=== PATIENT | female | born 2005 | race African-American/Black ===

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

== ENCOUNTER 2024-03-09 07:20 | Emergency (ER) | payer OTHER, SELFPAY ==
[2024-03-09 07:20] VITALS: BP 122/77; PULSE 96; RESP 16; TEMP 37.3; O2SAT 98
--- NOTE | 2024-03-09 07:35 | ED.NECK ---
HPI - Neck Pain/Injury General Chief Complaint: Neck Pain/Injury Stated Complaint: neck pain & nausea Time Seen by Provider: 03/09/24 07:34 Source: patient Mode of arrival: EMS Limitations: no limitations History of Present Illness HPI Narrative: 18-year-old female presents from home via EMS with complaint of right-sided neck pain a a the past 1 day. She states started as a headache that seems to have gone into the right side of her neck. She has a history of headaches but notes that it was unusual to have the associated neck pain. She denies any injury or trauma. She denies any repetitive movements she does work at [employer]. No paresthesias. [id number]. She lives with 3 roommates but is unsure if any of them are sick. She started having nausea approximately 6:00 a.m.. She denies any vomiting Or abdominal pain. Not on anticoagulation. Denies dysuria or fevers. Denies any altered mental status or slurred speech. She did take her on 500 mg tablet of acetaminophen yesterday and states it worked for about 30 minutes. She notes some very slight eye pain but states it feels more supraorbital. She is noted to be suffering a states that she had worsening congestion yesterday. Mild photophobia at home but denies any photophobia currently. No phonophobia. No known carbon monoxide/space heater use. LBM normal. Related Data Allergies Allergy/AdvReac Type Severity Reaction Status Date / Time No Known Allergies Allergy Verified 03/09/24 07:35 PMFSH Past Medical History Medical History History of headache Ovarian cyst Right hand dominant Social History Social History Living arrangements: with roommate(s) Additional living arrangements comments: 3 roommates Occupation/Education: occupation Additional occupation/education comments: [employer] Exam Narrative: GENERAL: Well-appearing, well-nourished, and in no acute distress. HEAD: Normocephalic, atraumatic. EYES: Non injected, non icteric. PERRL. EOMI w/o nystagmus. ENT: No epistaxis but occasionally sniffling with nasal congestion. NECK: Supple. Full ROM w/o meningismus. CHEST: Speaking in full sentences. No respiratory distress. HEART: Regular rate and rhythm. ABDOMEN: Soft, nondistended. EXTREMITIES: Normal range of motion. No edema. SKIN: Warm, dry, no rash. NEURO: No focal deficits. Alert and oriented x3. Sensation intact to gross touch throughout. Speaks clearly without Aphasia or dysarthria. PSYCH: Normal mood and affect. Course Vital Signs Vital signs: Vital Signs Temperature 99.2 F 03/09/24 07:20 Pulse Rate 96 03/09/24 07:20 Respiratory Rate 16 03/09/24 07:20 Blood Pressure 122/77 03/09/24 07:20 Pulse Oximetry 98 03/09/24 07:20 Oxygen Delivery Room Air 03/09/24 07:20 Temperature 99.2 F 03/09/24 07:20 Pulse Rate 72 03/09/24 09:25 Respiratory Rate 16 03/09/24 09:25 Blood Pressure 125/72 03/09/24 09:25 Pulse Oximetry 99 03/09/24 09:25 Oxygen Delivery Room Air 03/09/24 07:20 MDM - Neck Pain/Injury MDM Narrative Medical decision making narrative: After obtaining the patient's history and performing a physical exam, the headache and neck pain is most likely due to benign etiology. The neurological examination is non-focal, there are no high-risk features on history. In the emergency department they are afebrile with vital signs within normal limits. The patient is non-toxic appearing. The Ddx for the patient's headache and neck pain is tension headache, migraine, or other headache of non-emergent etiology. Considered for nausea as well as acute viral syndrome. Unlikely SAH: headache is non-thunderclap. Headache is gradual, and similar to headaches in the past. Unlikely subdural/epidural hematoma: no history of trauma, no anticoagulation Unlikely meningitis:
[2024-03-09] MEDS: ACETAMINOPHEN 325 MG TABLET 650 MG PO (07:50)
[2024-03-09] MEDS: KETOROLAC 30 MG/ML VIAL (*BKC) 15 MG IM (07:51)
[2024-03-09] MEDS: ONDANSETRON HCL ODT 4 MG TABLET PO (07:51)
[2024-03-09 08:05] LABS: Appearance Urine Clear (Clear); Bacteria Urine Rare /hpf; Bilirubin Urine Negative (Negative); Blood Urine 2+ (Negative); Color Urine Yellow (Yellow); Glucose Urine UA Negative (Negative); Ketones Urine Negative (Negative); Leukocyte Esterase Ur Trace LEU/UL (Negative); Nitrate Urine Negative (Negative); Non Pathogenic Casts 0-2; Protein Urine Negative (Negative); Specific Grav Ur 1.013 (1.001-1.035); Squamous Epithelial Cell Urine Occasional /hpf (Few); Urobilinogen Urine 0.2 mg/dL (<2.0)
[2024-03-09 08:18] LABS: Add Urine Microscopic? YES
[2024-03-09 08:30] LABS: Influenza A QL RT-PCR Negative (Negative); Influenza B QL RT-PCR Negative (Negative); RSV RNA, RT-PCR Negative (Negative); SARS-CoV-2 RNA PCR Negative (Negative)
[2024-03-09] MEDS: SULFAMETHOXAZOLE/TRIMETHOPRIM 800/160 MG DS TABLET 1 TAB PO (09:17)
[2024-03-09] MEDS: predniSONE 10 MG TABLET PO (09:17)
[2024-03-09 09:25] VITALS: BP 125/72; PULSE 72; RESP 16; O2SAT 99
== END 2024-03-09 09:25 | disposition home or self-care (01) ==
PROVIDERS: Emergency Provider Student in an Organized Health Care Education/Training Program
DX: M54.2 Cervicalgia (principal); R51.9 Headache, unspecified; N39.0 Urinary tract infection, site not specified; R11.0 Nausea
CPT/HCPCS: 81001; 81025; 87086; 87637; 96372; 99283; A9270; J1885; J7512

== ENCOUNTER 2024-04-19 05:06 | Emergency (ER) | payer OTHER, SELFPAY ==
[2024-04-19 05:07] VITALS: BP 115/80; PULSE 89; RESP 17; TEMP 36.9; O2SAT 100
[2024-04-19 05:11] VITALS: BP 115/80; PULSE 89; RESP 18; TEMP 36.9; O2SAT 100
[2024-04-19 05:21] LABS: Basophils Percent Auto 0.3 % (0.2-1.2); Eosinophils Absolute Auto 0.2 K/mm3 (0-0.3); Eosinophils Percent Auto 2.7 % (0-4.4); Hematocrit 37.4 % (37.0-47.0); Hemoglobin 12.5 g/dL (12.0-15.0); Immature Granulocyte Absolute 0.02 K/mm3 (0.00-0.031); Immature Granulocyte Percent A 0.2 % (0-0.5); Lymphocytes Absolute Auto 3.11 K/mm3 (0.9-3.2); Lymphocytes Percent Auto 34.7 % (18.3-44.2); Mean Corpuscular HGB Conc 33.4 g/dl (32-36); Mean Corpuscular Hemoglobin 31.6 pg (26-34); Mean Corpuscular Volume 94.4 fl (80-100); Mean Platelet Volume 9.3 fl (7.4-10.4); Monocytes Absolute Auto 0.8 K/mm3 (0.1-0.6); Monocytes Percent Auto 8.9 % (2.6-8.5); Neutrophils Absolute Auto 4.8 K/mm3 (1.3-6.7); Neutrophils Percent Auto 53.2 % (45.5-73.1); Platelet Count Result 312 k/mm3 (150-375); Red Blood Count 3.96 M/mm3 (4.2-5.4); Red Cell Distribution Width 11.7 % (11.5-14.5)
[2024-04-19] MEDS: ONDANSETRON INJ 4 MG/2 ML VIAL IV PUSH (05:21)
[2024-04-19 05:32] LABS: Alanine Aminotransferase 11 U/L (6-35); Albumin Level 4.4 g/dL (3.7-5.6); Alkaline Phosphatase 45 U/L (45-116); Anion Gap 7 mmol/L (4-12); Aspartate Amino Transferase 24 U/L (14-36); Bilirubin,Total 0.3 mg/dL (0.2-1.3); Blood Urea Nitrogen 11 mg/dL (8-21); Calcium 9.2 mg/dL (8.9-10.7); Carbon Dioxide 26 mmol/L (22-30); Chloride 107 mmol/L (98-107); Estimated CRCL calculation 78 ml/min; Estimated Glomerular Filt Rate > 60; Glucose 94 mg/dL (65-110); Lipase 118 U/L (23-300); Potassium 4.1 mmol/L (3.4-5.0); Sodium 140 mmol/L (134-143)
[2024-04-19 05:36] LABS: Appearance Urine Cloudy (Clear); Bacteria Urine 1+ /hpf; Bilirubin Urine Negative (Negative); Blood Urine 3+ (Negative); Color Urine Yellow (Yellow); Glucose Urine UA Negative (Negative); Ketones Urine Negative (Negative); Leukocyte Esterase Ur Trace LEU/UL (Negative); Nitrate Urine Negative (Negative); Non Pathogenic Casts 0-2; Protein Urine Trace mg/dL (Negative); RBC Urine 21-50 /hpf (0-2); Specific Grav Ur 1.026 (1.001-1.035); Squamous Epithelial Cell Urine Moderate /hpf (Few)
[2024-04-19 05:37] LABS: Add Urine Microscopic? YES
[2024-04-19 05:38] VITALS: BP 110/66; BP 115/76; BP 119/72; PULSE 83; PULSE 91; PULSE 99
[2024-04-19 05:57] VITALS: BP 125/71; PULSE 88; RESP 16; O2SAT 100
--- NOTE | 2024-04-19 06:02 | ED.NAVMDI ---
HPI - Nausea/Vomiting/Diarrhea General Chief complaint: Nausea/Vomiting/Diarrhea Stated complaint: N/V Time Seen by Provider: 04/19/24 05:14 History of Present Illness HPI Narrative: Patient presenting with nausea vomiting this started several hours ago, having trouble keeping things down. No dysuria, she does have spotting for the last month since she has been on the Depo shot. No constipation or diarrhea Related Data Allergies Allergy/AdvReac Type Severity Reaction Status Date / Time No Known Allergies Allergy Verified 04/19/24 05:12 Review of Systems Review of Systems: All systems reviewed & are unremarkable except as noted in HPI and below PMFSH Past Medical History Medical History History of headache Ovarian cyst Right hand dominant Social History Social History Living arrangements: with roommate(s) Additional living arrangements comments: 3 roommates Occupation/Education: occupation Additional occupation/education comments: [employer] Exam Narrative: EXAMINATION OF ORGAN SYSTEMS/BODY AREAS: Constitutional: Vital signs per nursing GENERAL:[No acute distress, non-toxic appearing.] HEAD: Normal with no signs of head trauma. EYES: EOMI, conjunctiva normal ENT: Hearing grossly intact LUNGS: Nonlabored breathing. HEART: [Regular rate and rhythm] ABD: [Soft], nontender to palpation EXT: Normal range of motion SKIN: [No rashes or lesions.] NEURO: [Alert and oriented x 3. No gross focal sensory or strength deficits.] PSYCH: Normal affect Course Vital Signs Vital signs: Vital Signs Temperature 98.5 F 04/19/24 05:07 Pulse Rate 89 04/19/24 05:07 Respiratory Rate 17 04/19/24 05:07 Blood Pressure 115/80 04/19/24 05:07 Pulse Oximetry 100 04/19/24 05:07 Oxygen Delivery Room Air 04/19/24 05:07 Temperature 98.5 F 04/19/24 05:11 Pulse Rate 88 04/19/24 05:57 Respiratory Rate 16 04/19/24 05:57 Blood Pressure 125/71 04/19/24 05:57 Pulse Oximetry 100 04/19/24 05:57 Oxygen Delivery Room Air 04/19/24 05:07 MDM - Nausea/Vomiting/Diarrhea MDM Narrative Medical decision making narrative: patient presents with nausea vomiting for the last few hours, no abdominal pain or tenderness, she is very well-appearing here. Labs within acceptable limits, her urine does have some blood in it is contaminated and she has no dysuria symptoms or have low concern for UTI. She is given Zofran and on re-evaluation is feeling much better, stable for discharge, return precautions provided Lab Data 04/19/24 05:14 04/19/24 05:14 Labs: Lab Results 04/19/24 04/19/24 Range/Units 05:14 05:22 WBC 9.0 (4.5-10.0) K/mm3 RBC 3.96 L (4.2-5.4) M/mm3 Hgb 12.5 (12.0-15.0) g/dL Hct 37.4 (37.0-47.0) % MCV 94.4 (80-100) fl MCH 31.6 (26-34) pg MCHC 33.4 (32-36) g/dl RDW 11.7 (11.5-14.5) % Plt Count 312 (150-375) k/mm3 MPV 9.3 (7.4-10.4) fl Immature Gran % (Auto) 0.2 (0-0.5) % Neut % (Auto) 53.2 (45.5-73.1) % Lymph % (Auto) 34.7 (18.3-44.2) % [place] % (Auto) 8.9 H (2.6-8.5) % Eos % (Auto) 2.7 (0-4.4) % Baso % (Auto) 0.3 (0.2-1.2) % Lymph # (Auto) 3.11 (0.9-3.2) K/mm3 [place] # (Auto) 0.8 H (0.1-0.6) K/mm3 Eos # (Auto) 0.2 (0-0.3) K/mm3 Baso # (Auto) 0.0 (0.0-0.1) K/mm3 Abs Immat Gran (auto) 0.02 (0.00-0.031) K/mm3 Absolute Neuts (auto) 4.8 (1.3-6.7) K/mm3 Absolute Nucleated RBC 0.000 (0.0-0.012) K/mm3 Nucleated RBC % 0.0 (0.0-0.2) % Sodium 140 (134-143) mmol/L Potassium 4.1 (3.4-5.0) mmol/L Chloride 107 (98-107) mmol/L Carbon Dioxide 26 (22-30) mmol/L Anion Gap 7 (4-12) mmol/L BUN 11 (8-21) mg/dL Creatinine 0.80 (0.7-1.0) mg/dL Estim Creat Clear Calc 78 ml/min Estimated GFR > 60 (59 - ) Glucose 94 (65-110)
== END 2024-04-19 05:59 | disposition home or self-care (01) ==
PROVIDERS: Emergency Provider Emergency Medicine; PCP Emergency Medicine
DX: R11.2 Nausea with vomiting, unspecified (principal)
CPT/HCPCS: 36415; 80053; 81001; 81025; 83690; 85025; 87086; 96374; 99284; J2405

== ENCOUNTER 2024-09-12 03:50 | Emergency (ER) | payer OTHER, SELFPAY ==
[2024-09-12 04:00] VITALS: BP 138/77; PULSE 101; RESP 17; TEMP 36.2; O2SAT 100
--- NOTE | 2024-09-12 04:47 | ED_ITS ---
HPI - General Adult General Chief complaint: Skin/Abscess/Foreign Body Stated complaint: facial burning Time Seen by Provider: 09/12/24 04:36 History of Present Illness HPI narrative: patient 18-year-old female who presents emergency department chief complaint of eczema to the cheeks and ears patient reports he has been trying multiple different creams including hydrocortisone without relief the patient reports she does not have a primary care provider and reports she has no other medical conditions. Related Data Allergies Allergy/AdvReac Type Severity Reaction Status Date / Time No Known Allergies Allergy Verified 09/12/24 04:05 Review of Systems Review of Systems: A 10 system review of systems was completed on the patient and is negative except for what is stated in the HPI. Nursing and ancillary documentation was reviewed. [facility] Past Medical History Medical History History of headache Ovarian cyst Right hand dominant Social History Social History Living arrangements: with roommate(s) Additional living arrangements comments: 3 roommates Occupation/Education: occupation Additional occupation/education comments: [employer] Exam Narrative: GENERAL: Well-appearing, well-nourished, and in no acute distress. HEAD: Normocephalic, atraumatic. EYES: PERRLA and EOMI. ENT: Nares clear, no rhinorrhea or epistaxis. Mucous membranes moist. NECK: Supple. CHEST: Clear to auscultation. No respiratory distress. HEART: Regular rate and rhythm. No murmur heard. Normal peripheral pulses. ABDOMEN: Soft, nontender, nondistended, normal active bowel sounds. EXTREMITIES: Normal range of motion. No edema. SKIN: Warm, dry, Eczematous rash present face. NEURO: No focal deficits. Alert and oriented x3. PSYCH: Normal mood and affect. Course Vital Signs Vital signs: Vital Signs Temperature 36.2 C L 09/12/24 04:00 Pulse Rate 101 H 09/12/24 04:00 Respiratory Rate 17 09/12/24 04:00 Blood Pressure 138/77 09/12/24 04:00 Pulse Oximetry 100 09/12/24 04:00 Oxygen Delivery Room Air 09/12/24 04:00 Temperature 36.2 C L 09/12/24 04:00 Pulse Rate 101 H 12/03/24 04:00 Respiratory Rate 17 09/12/24 04:00 Blood Pressure 138/77 09/12/24 04:00 Pulse Oximetry 100 09/12/24 04:00 Oxygen Delivery Room Air 09/12/24 04:00 Medical Decision Making MDM Narrative Medical decision making narrative: differential diagnosis includes eczema there is no signs of infection on exam patient was given 10 mg Decadron IM the patient will be referred to a primary care provider and will be started on p.o. prednisone. Vital Signs Vital Signs: Vital Signs Temperature 36.2 C L 09/12/24 04:00 Pulse Rate 101 H 09/12/24 04:00 Respiratory Rate 17 09/12/24 04:00 Blood Pressure 138/77 09/12/24 04:00 Pulse Oximetry 100 09/12/24 04:00 Oxygen Delivery Room Air 09/12/24 04:00 Temperature 36.2 C L 09/12/24 04:00 Pulse Rate 101 H 09/12/24 04:00 Respiratory Rate 17 09/12/24 04:00 Blood Pressure 138/77 09/12/24 04:00 Pulse Oximetry 100 09/12/24 04:00 Oxygen Delivery Room Air 09/12/24 04:00 Discharge Plan Discharge Clinical Impression: Eczema Patient Disposition: Home, Self-Care Condition: Stable Instructions: Antibiotic Form, Eczema (ED) Prescriptions: New prednisone 20 mg tablet 40 mg PO DAILY 5 Days Qty: 10 0RF No Action naproxen 375 mg tablet 375 mg PO BID Qty: 14 0RF ibuprofen 600 mg tablet 600 mg PO TID PRN (Reason: pain) Qty: 20 0RF ondansetron 4 mg tablet,disintegrating 4 mg PO Q8H PRN (Reason: nausea and vomiting) Qty: 7 0RF acetaminophen 500 mg capsule 1,000 mg PO Q6H PRN (Reason: pain) Qty: 20 0RF sulfamethoxazole-trimethoprim [Bactrim DS] 800-160 mg tablet 1 tablet PO Q12H 3 Days Qty: 6 0RF ondansetron 4 mg tablet,disintegrating 4 mg PO Q8H PRN (Reason: nausea and vomiting) Qty: 10 0RF Follow-up/Referrals: Cj Krishna MD [Primary Care Provider] - Time of Disposition: 04:49
[2024-09-12] MEDS: dexAMETHasone SOD PHOS INJ 10 MG/ML 1 ML VIAL IM (05:10)
== END 2024-09-12 05:18 | disposition home or self-care (01) ==
LOC: ANHED 04:54
PROVIDERS: Emergency Provider Emergency Medicine
DX: L30.9 Dermatitis, unspecified (principal)
CPT/HCPCS: 96372; 99283; J1100

== ENCOUNTER 2024-10-04 21:19 | Emergency (ER) | payer MEDICAID, SELFPAY ==
[2024-10-04 22:02] VITALS: BP 119/61; PULSE 103; RESP 19; TEMP 36.6; O2SAT 100
--- NOTE | 2024-10-05 00:45 | PC.NURSE ---
Pt called by YOLANDA Jones @ 0045. Pt stated she had no problems and did not want to be seen by a doctor.
--- OUTSIDE RECORDS SUMMARY | 2024-10-12 01:53 | XMS_ITS | Referral Summary ---
Author Organization [facility] Address [address] [place] [address] Care Team Providers Care Midlevel Provider Name Role Phone Unavailable Primary Care Provider Unavailabl e Source Comments [facility],non-owned Affiliates and Associated Physician Practices is amultiple site organization consisting of ambulatory clinics and hospital sitesin [place], [place], [place]. This disclosure is being madepursuant to the Care Everywhere program and may not contain all information available regarding this patient. 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 Alwaysverify current medications with the patient. Medication Sig Dispensed Refills Start Date End Date Status pimecrolimus (Elidel) 1 % creamIndications:Henry pic Dermatitis Apply to face and ears twice a day. 30 days supply. Reasons: Atopic Dermatitis 60 g 2 09/28/2024 Active hydrocortisone (Hytone) 2.5 % cream Apply to face twice daily. Do not use for more than a month consistently. 30 days supply. 30 g 2 09/28/2024 Active ketoconazole (Nizoral) 2 % shampoo Apply to wet hair and face, leave on for 3 minutes, then rinse; three times weekly. 30 days supply 120 mL 3 09/28/2024 Active Social History Tobacco Use Types Packs/Day Years Used Date Smoking Tobacco: Never Assessed Sex and Gender Information Value Date Recorded Sex Assigned at Not on file Gender Identity Not on file Sexual Orientation Not on file Plan of Treatment Upcoming Encounters Date Type Department Care Team (Late st Contact Info) Description 01/25/2025 2:50 PM CDT Office Visit [facility] - Dermatology [address] [facility] [place] [phone] Bonny Carney MD [address] [facility] [address] [place] [id number] Neil Castaneda Personal/Family Self 2005
--- OUTSIDE RECORDS SUMMARY | 2024-10-12 01:53 | XMS_ITS | Encounter Summary ---
Author Organization 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 Office Visit [facility] - Dermatology [address] [place] [address] [place] [phone] Bonny Carney MD [address] [place] [address] [address] [place] [phone] Other atopic dermatitis (Primary Dx); Other seborrheic dermatitis; Rash and other nonspecific skin eruption Social History Tobacco Use Types Packs/Day Years Used Date Smoking Tobacco: Never Assessed Sex and Gender Information Value Date Recorded Sex Assigned at Not on file Gender Identity Not on file Sexual Orientation Not on file documented as of this encounter Patient Instructions * Patient Instructions* Bonny Carney MD - 09/28/2024 1:37 PM LIVESTOCK INSPECTOR For rash on face and ears - favor seborrheic dermatitis - Start ketoconazole 2% shampoo three times a week to face and to scalp when you wash your hair - Start elidel 1% cream twice a day to face and ears as needed for rash, if delay in picking up, start hydrocortisone 2.5% cream twice a day in the meantime STOCK INSPECTOR documented in this encounter Progress Notes * Bonny Carney MD - 09/28/2024 1:26 PM CST Chief Complaint Patient presents with Eczema Current TX: multiple OTC topicals; no relief Today: face, neck and ears HPI: Neil Castaneda a 18 year old female presents with complaint of facial, ear and neck rash for the past 7 years. Used triamcinolone 0.1% in 2019 with improvement. No significant improvement prednisone 5 day taper (started 09/13), previously also OTC hydrocortisone and eucerin without improvement. No joint pains. No personal and family history of lupus. Past medical history, social history and family history were reviewed. ROS: As per HPI above. PE: No acute distress. Mood clear/affect appropriate. Alert and oriented. Mucous membranes moist. Sclera anicteric. Visible skin exam was conducted to include the scalp, face, lips/teeth, lids/conjunctiva, ears, neck, right and left hands and forearms and was normal with the following exceptions: Hypopigmented thin scaly plaque on bilateral malar cheeks and upper cutaneous lip Thin erythematous papules on conchal bowl diffuse scale on scalp A/P: Rash NOS on face and ears - favor seborrheic dermatitis given dandruff on scalp, ddx also includes early discoid lupus and atopic dermatitis - Discussed possible etiologies, natural history and treatment options - Will plan for biopsy at Next clinic visit if no improvement with below, patient agrees with plan - Start Elidel 1% cream BID to face, ears and neck PRN rash, if Elidel not covered, use hydrocortisone 2.5% cream instead, SE of skin atrophy discussed with topical corticosteroids - Start ketoconazole 2% shampoo TIW to face, ears and neck in shower, leave on for 3-5 minutes prior to rinsing out, can alternate with OTC anti-dandruff shampoo Seborrheic dermatitis on scalp - Discussed etiology, natural history and treatment options - Start ketoconazole 2% shampoo TIW to scalp in shower, leave on for 3-5 minutes prior to rinsing out, can alternate with OTC anti-dandruff shampoo RTC in 3 months Billing Guide Bonny Carney MD STOCK INSPECTOR documented in this encounter Plan of Treatment Upcoming Encounters Date Type Department Care Team (Late st Contact Info) Description 01/25/2025 2:50 PM CDT Office Visit [facility] - Dermatology [address] [place] [address], [facility] [place] [address] Bonny Carney MD [address] [place] [address] [address] [place] [phone] documented as of this encounter Visit Diagnoses Diagnosis Other atopic dermatitis- Primary Other seborrheic dermatitis Rash and other nonspecific skin eruption documented in this encounter
--- OUTSIDE RECORDS SUMMARY | 2024-10-12 01:53 | XMS_ITS | Patient Health Summary ---
Author Organization [facility] Address [address] [place] [address] Care Team Providers Care Photographic Editor Name Role Phone Unavailable Primary Care Provider Unavailabl e Note from [facility],non-owned Affiliates and Associated Physician Practices is amultiple site organization consisting of ambulatory clinics and hospital sitesin [place], [place], [place] and [place]. This disclosure is being madepursuant to the Care Everywhere program and may not contain all information available regarding this patient. Last updated 18.[facility] [employer] Allergies No known active allergies Medications * Be aware that medications may not be up to date on this document. Alwaysverify current medications with the patient. * pimecrolimus (Elidel) 1 % cream(Started 09/28/2024) Apply to face and ears twice a day. 30 days supply. Reasons: Atopic Dermatitis 2 refills by 09/28/2025 * hydrocortisone (Hytone) 2.5 % cream(Started 09/28/2024) Apply to face twice daily. Do not use for more than a month consistently. 30 days supply. 2 refills by 09/28/2025 * ketoconazole (Nizoral) 2 % shampoo(Started 09/28/2024) Apply to wet hair and face, leave on for 3 minutes, then rinse; three times weekly. 30 days supply 3 refills by 09/28/2025 Social History Tobacco Use Types Packs/Day Years Used Date Smoking Tobacco: Never Assessed Sex and Gender Information Value Date Recorded Sex Assigned at Not on file Gender Identity Not on file Sexual Orientation Not on file
--- OUTSIDE RECORDS SUMMARY | 2024-10-12 01:53 | XMS_ITS | Clinical Summary ---
Author Organization [facility] Address [address] [facility] [place] [address] Care Team Providers Care Building Stonecutter Name Role Phone Unavailable Primary Care Provider Unavailabl e Source Comments [facility],non-owned Affiliates and Associated Physician Practices is amultiple site organization consisting of ambulatory clinics and hospital sitesin [place], [place], [place] and [place]. This disclosure is being madepursuant to the Care Everywhere program and may not contain all information available regarding this patient. Last updated 18.[facility] [employer] Allergies No known active allergies Medications * [...] days supply 120 mL 3 09/28/2024 Active Encounters Date Type Department Care Team Description 09/28/2024 1:20 PM COUNTY HISTORIAN Office Visit [facility] - Dermatology [address] [place] [address] [place] [phone] Bonny Carney MD Other atopic dermatitis (Primary Dx); Other seborrheic dermatitis; Rash and other nonspecific skin eruption from Last 3 Months Social History Tobacco Use Types Packs/Day Years Used Date Smoking Tobacco: Never Assessed Sex and Gender Information Value Date Recorded Sex Assigned at Not on file Gender Identity Not on file Sexual Orientation Not on file Plan of Treatment Upcoming Encounters Date Type Department Care Team (Late st Contact Info) Description 01/25/2025 2:50 PM CDT Office Visit [facility] - Dermatology [address] [facility] [facility] [place] [phone] Bonny Carney MD [address] [facility] 3L [place] [phone] Health Maintenance Due Date Last Done Comments HIV SCREENING 01/01/2020 HPV VACCINE (1 - 3-dose series) 01/01/2020 CHLAMYDIA/GONORRHEA SCREENING 2020 HEPATITIS C SCREENING 12/27/2022 DEPRESSION SCREENING 10/11/2023 DTAP/TDAP/TD VACCINES (1 - Tdap) 01/01/2024 HEPATITIS B VACCINE (1 of 3 - 19+ 3-dose series) 01/01/2024 COVID-19 VACCINE (1 - 2023-2 5 season) 2024 INFLUENZA VACCINE (#1) 2024 ZOSTER VACCINE (1 of 2) 2054 HIB VACCINE Aged Out No longer eligi ble based on patient's age to complete this topic MENINGOCOCCAL VACCINE Aged Out No flores linda eligible based on patient's age to complete this topic PNEUMOCOCCAL VACCINE Aged Out No long er eligible based on patient's age to complete this topic Neil Castaneda Personal/Family Self 2005
== END 2024-10-05 01:05 | disposition left against medical advice (07) ==
LOC: ANHED 10-05 00:58
DX: R51.9 Headache, unspecified (principal)
CPT/HCPCS: 99199

== ENCOUNTER 2025-01-10 21:18 | Emergency (ER) | payer OTHER, SELFPAY ==
--- NOTE | ~2025-01-10 | XR_ITS ---
Portable chest x-ray Comparison: None Clinical History: Chest pain Findings: Lungs are clear, without focal consolidation or pleural effusion. Cardiomediastinal silho uette is unremarkable. Bones and soft tissues are unremarkable. Impression: Normal chest. Reviewed, dictated and finalized at location . Impression: Normal chest.
--- NOTE | 2025-01-10 21:19 | ECG_ITS ---
Test Date: 2025-01-10 21:17:59 Measurements Intervals [place] Rate: 89 P: 67 MT: 160 QRS: 57 QRSD: 82 T: 41 QT: 344 QTc: 420 Interpretive Statements SINUS RHYTHM NORMAL ECG No previous ECG available for comparison Electronically Signed On 01-11-2025 05:05:21 CDT by Barry Childress D.O.
[2025-01-10 21:24] VITALS: BP 116/72; PULSE 87; RESP 16; TEMP 36.8; O2SAT 100
[2025-01-10 21:27] VITALS: PULSE 87
[2025-01-10 21:28] VITALS: BP 116/72; PULSE 87; RESP 16; TEMP 36.8; O2SAT 100
[2025-01-10 21:28] LABS: Basophils Percent Auto 0.4 % (0.2-1.2); Eosinophils Absolute Auto 0.1 K/mm3 (0-0.3); Hematocrit 35.3 % (37.0-47.0); Hemoglobin 12.3 g/dL (12.0-15.0); Immature Granulocyte Absolute 0.02 K/mm3 (0.00-0.031); Immature Granulocyte Percent A 0.2 % (0-0.5); Lymphocytes Absolute Auto 2.22 K/mm3 (0.9-3.2); Lymphocytes Percent Auto 27.3 % (18.3-44.2); Mean Corpuscular HGB Conc 34.8 g/dl (32-36); Mean Corpuscular Hemoglobin 31.6 pg (26-34); Mean Corpuscular Volume 90.7 fl (80-100); Mean Platelet Volume 9.5 fl (7.4-10.4); Monocytes Absolute Auto 0.5 K/mm3 (0.1-0.6); Monocytes Percent Auto 5.9 % (2.6-8.5); Neutrophils Absolute Auto 5.3 K/mm3 (1.3-6.7); Neutrophils Percent Auto 65.2 % (45.5-73.1); Platelet Count Result 299 k/mm3 (150-375); Red Blood Count 3.89 M/mm3 (4.2-5.4); Red Cell Distribution Width 11.8 % (11.5-14.5); White Blood Count 8.1 K/mm3 (4.5-10.0)
[2025-01-10 21:39] LABS: Alanine Aminotransferase 13 U/L (6-35); Albumin Level 4.4 g/dL (3.5-5.1); Alkaline Phosphatase 45 U/L (38-126); Anion Gap 9 mmol/L (4-12); Aspartate Amino Transferase 24 U/L (14-36); Bilirubin,Total 0.3 mg/dL (0.2-1.3); Blood Urea Nitrogen 11 mg/dL (7-17); Carbon Dioxide 22 mmol/L (22-30); Chloride 107 mmol/L (98-107); Estimated CRCL calculation 80 ml/min; Estimated Glomerular Filt Rate > 60; Glucose 98 mg/dL (65-110); Lipase 50 U/L (23-300); Potassium 3.4 mmol/L (3.4-5.0); Sodium 138 mmol/L (137-145)
[2025-01-10 21:40] LABS: INR 1.1; Partial Thromboplastin Time 28.9 Seconds (22.3-36.8); Prothrombin Time 14.2 Seconds (11.1-14.7)
--- OUTSIDE RECORDS SUMMARY | 2025-01-10 21:47 | XMS_ITS | Clinical Summary ---
Author Organization [facility] Address [address] [place] [address] Care Team Providers Care Detective Automobile Section Name Role Phone Unavailable Primary Care Provider Unavailabl e Source Comments [facility] [employer],non-owned Affiliates and Associated Physician Practices is amultiple site organization consisting of ambulatory clinics and hospital sitesin [place], [place], [place] and [place]. This disclosure is being madepursuant to the Care Everywhere program and may not contain all information available regarding this patient. Last updated 18.[facility] [employer] Allergies No known active allergies Medications * Be aware that medications may not be up to date on this document. Alwaysverify current medications with the patient. Medication Sig Dispensed Refills Start Date End Date Status ketoconazole (Nizoral) 2 % shampoo Apply to wet hair and face, leave on for 3 minutes, then rinse; three times weekly. 30 days supply 120 mL 3 09/28/2024 Active hydrocortisone (Hytone) 2.5 % cream Apply to face twice daily. Do not use for more than a month consistently. 30 days supply. 30 g 2 11/08/2024 Active pimecrolimus (Elidel) 1 % creamIndications :Atopic Dermatitis Apply to face and ears twice a day. 30 days supply. Reasons: Atopic Dermatitis 30 g 2 01/03/2025 Active triamcinolone acetonide (Kenalog) 0.025 % creamIndications :Dermatitis Apply to face twice daily as needed for rash. 30 days supply. Reasons: Skin Inflammation 80 g 1 01/04/2025 Active pimecrolimus (Elidel) 1 % creamIndications :Atopic Dermatitis Apply to face and ears twice a day. 30 days supply. Reasons: Atopic Dermatitis 60 g 2 11/08/2024 12/29/2024 Discontinued (Reorder) pimecrolimus (Elidel) 1 % creamIndications :Atopic Dermatitis Apply to face and ears twice a day. 30 days supply. Reasons: Atopic Dermatitis 60 g 2 01/01/2025 01/03/2025 Discontinued (Reorder) Encounters Date Type Department Care Team Description 01/03/2025 Telephone [facility] - Dermatology [address] [place] [phone] Bonny Carney MD Insurance Issue/question ([employer] CALLING TO REQUEST NEW PA FOR; pimecrolimus (Elidel) 1 % cream (Order [id number]) DUE TO DENIAL FOR QUANITY . PLS RESUBMIT PA W/ QUANITY OF 30 GRAMS TUBE PER MONTH. IF MORE THAN 30 GRAMS PLS PROV ADDITIONAL INFO./) 12/29/2024 Refill [facility] - Dermatology [address] [place] [phone] Bonny Carney MD MEDICATION REFILL 11/08/2024 Refill [facility] Derm[facility]ology [address] [place] [phone] Bonny Carney MD MEDICATION REFILL from Last 3 Months Social History Tobacco [...] Office Visit [facility] - Dermatology [address] [place] [phone] Bonny Carney MD [address] [place] [address] [address] [place] [phone] Health Maintenance Due Date Last Done Comments HIV SCREENING 01/01/2020 HPV VACCINE (1 - 3-dose series) 01/01/2020 CHLAMYDIA/GONORRHEA SCREENING 2020 MENINGOCOCCAL (Group B) VACC INE SHARED DECISION-MAKING (1 of 2 - Standard) 2020 HEPATITIS C SCREENING 12/27/2022 DTAP/TDAP/TD VACCINES (1 - Tdap) 01/01/2024 HEPATITIS B VACCINE (1 of 3 - 19+ 3-dose series) 01/01/2024 COVID-19 VACCINE (1 - 2023-2 5 season) 2024 INFLUENZA VACCINE (#1) 2024 DEPRESSION SCREENING 10/11/2024 ZOSTER VACCINE (1 of 2) 2054 HIB VACCINE Aged Out No longer eligi ble based on patient's age to complete this topic MENINGOCOCCAL GROUPS A/C/Y/W VACCINE Aged Out No longer eligible b ased on patient's age to complete this topic PNEUMOCOCCAL VACCINE Aged Out No long er eligible based on patient's age to complete this topic Neil Castaneda Personal/Family Self 2005
[2025-01-10 21:55] LABS: Troponin I < 0.012 ng/mL (0.000-0.034)
--- NOTE | 2025-01-10 22:03 | ED_ITS ---
HPI - Chest Pain General Chief Complaint: Chest Pain Stated Complaint: CHEST PAIN Time Seen by Provider: 01/10/25 21:22 Source: patient Mode of arrival: ambulatory Limitations: no limitations History of Present Illness HPI narrative: 19 YEARS OLD FEMALE WITH INSIGNIFICANT PAST MEDICAL HISTORY DROVE HERSELF TO THE EMERGENCY ROOM BECAUSE CHEST PAIN, TIGHTNESS, EVERY TIME SHE EATS, PATIENT DENIES TROUBLE SWALLOWING, OR PAINFUL SWALLOWING. PATIENT IS TELLING ME THE SHE ABLE TO WASH THE FOOD DOWN WITH WATER WITHOUT ANY TROUBLE. THE PAIN IS RETROSTERNAL, RADIATED TO BOTH SIDES OF THE CHEST, GETS BETTER IN FEW HOURS AFTER EATING. PATIENT DENIES ANY FEVER, CHILLS, NAUSEA, VOMITING, ABDOMINAL PAIN OR BACK PAIN. PATIENT DOES NOT SMOKE CIGARETTES OR DRINK ALCOHOL, USES MARIJUANA DAILY. PATIENT REPORTS A LOT OF STRESS LATELY Related Data Allergies Allergy/AdvReac Type Severity Reaction Status Date / Time No Known Allergies Allergy Verified 09/12/24 04:05 Review of Systems 2 Review of Systems: All systems reviewed & are unremarkable except as noted in HPI and below PMFSH Past Medical History Medical History History of headache Right hand dominant Ovarian cyst Social History Social History Living arrangements: with roommate(s) Additional living arrangements comments: 3 roommates Occupation/Education: occupation Additional occupation/education comments: [employer] 2 Narrative: GENERAL APPEARANCE: WELL-DEVELOPED, WELL-NOURISHED SKIN: NORMAL COLOR HEAD: NORMOCEPHALIC, NONTRAUMATIC EYES: CLEAR CONJUNCTIVA ENT: OROPHARYNX NORMAL, EARS NORMAL, NOSE NORMAL NECK: SUPPLE, NONTENDER CHEST AND RESPIRATORY: AIRWAY PATENT, NO RESPIRATORY DISTRESS, NO ACCESSORY MUSCLE USE HEART: REGULAR RATE/RHYTHM ABDOMEN: SOFT, NONTENDER, NO ORGANOMEGALY, QUIET BOWEL SOUNDS VASCULAR: NORMAL PERIPHERAL PULSES, NORMAL CAPILLARY REFILL. MUSCULOSKELETAL: NORMAL RANGE OF MOTION, NONTENDER BACK NEUROLOGIC: ALERT AND ORIENTED ?3, NIGHT PATROL INSPECTOR IS NORMAL TESTED, NO GROSS MOTOR DEFICIT Course Vital Signs Vital signs: Vital Signs Temperature 36.8 C 01/10/25 21:24 Pulse Rate 87 01/10/25 21:24 Respiratory Rate 16 01/10/25 21:24 Blood Pressure 116/72 01/10/25 21:24 Pulse Oximetry 100 01/10/25 21:24 Oxygen Delivery Room Air 01/10/25 21:24 Temperature 36.8 C 01/10/25 21:28 Pulse Rate 87 01/10/25 21:28 Respiratory Rate 16 01/10/25 21:28 Blood Pressure 116/72 01/10/25 21:28 Pulse Oximetry 100 01/10/25 21:28 Oxygen Delivery Room Air 01/10/25 21:28 MDM - Chest Pain MDM Narrative Medical decision making narrative: PATIENT PRESENTS WITH RETROSTERNAL CHEST PAIN EVERY TIME WHEN SHE HAD STARTED LAST NIGHT. GETS BETTER IN FEW HOURS THEN COME BACK AGAIN IMMEDIATELY WHEN SHE IT. VITAL SIGNS ARE STABLE PHYSICAL EXAMINATION IS UNREMARKABLE DIFFERENTIAL DIAGNOSIS INCLUDE ESOPHAGEAL SPASM, ESOPHAGITIS, GERD, GASTRITIS. BLOOD WORKUP TODAY INCLUDES CBC, CMP, TROPONIN SHOWED NO SIGNIFICANT ABNORMALITY CHEST X-RAY SHOWED NO ACUTE ABNORMALITY EKG SHOWED NORMAL SINUS RHYTHM. DIAGNOSIS ESOPHAGEAL SPASM, ESOPHAGITIS DISCHARGED WITH PPI AND FOLLOW-UP WITH BRUSH CLEARING LABORER IF THERE IS NO IMPROVEMENT. Differential Diagnosis Differential diagnosis: Likely other ( ABOVE) Medical Records Data Attestation: I reviewed the patient's medical records. Lab Data Attestation: I reviewed the patient's lab results. 01/10/25 21:22 01/10/25 21:22 Labs: Lab Results 01/10/25 Range/Units 21:22 WBC 8.1 (4.5-10.0) K/mm3 RBC 3.89 L (4.2-5.4) M/mm3 Hgb 12.3 (12.0-15.0) g/dL Hct 35.3 L (37.0-47.0) % MCV 90.7 (80-100) fl MCH 31.6 (26-34) pg MCHC 34.8 (32-36) g/dl RDW 11.8 (11.5-14.5) % Plt Count 299 (150-375) k/mm3 MPV 9.5 (7.4-10.4) fl Immature Gran % (Auto) 0.2 (0-0.5) % Neut % (Auto) 65.2 (45.5-73.1) % Lymph % (Auto) 27.3 (18.3-44.2) % [place] % (Auto) 5.9 (2.6-8.5) % Eos % (Auto) 1.0 (0-4.4) % Baso % (Auto) 0.4 (0.2-1.2) % Lymph # (Auto) 2.22 (0.9-3.2) K/mm3 [place] # (Auto) 0.5 (0.1-0.6) K/mm3 Eos # (Auto) 0.1 (0-0.3) K/mm3 Baso # (Auto) 0.0 (0.0-0.1) K/mm3 Abs Immat Gran (auto) 0.02 (0.00-0.031) K/mm3 Absolute Neuts (auto) 5.3 (1.3-6.7) K/mm3 Absolute Nucleated RBC 0.000 (0.0-0.012) K/mm3 Nucleated RBC % 0.0 (0.0-0.2) % PT 14.2 (11.1-14.7) Seconds INR 1.1 APTT 28.9 (22.3-36.8) Seconds Sodium 138 (137-145) mmol/L Potassium 3.4 (3.4-5.0) mmol/L Chloride 107 (98-107) mmol/L Carbon Dioxide 22 (22-30) mmol/L Anion Gap 9 (4-12) mmol/L BUN 11 (7-17) mg/dL Creatinine 0.77 (0.7-1.0) mg/dL Estim Creat Clear Calc 80 ml/min Estimated GFR > 60 (59 - ) Glucose 98 (65-110) mg/dL Calcium 9.0 (8.4-10.2) mg/dL Total Bilirubin 0.3 (0.2-1.3) mg/dL AST 24 (14-36) U/L ALT 13 (6-35) U/L Alkaline Phosphatase 45 (38-126) U/L Troponin I < 0.012 (0.000-0.034) ng/mL Total Protein 7.0 (6.3-8.2) g/dL Albumin 4.4 (3.5-5.1) g/dL Lipase 50 (23-300) U/L Imaging Data Radiologist's impression: CHEST X-RAY SHOWED NO ACUTE ABNORMALITY ECG Data EKG #1: Attestation: I personally reviewed and interpreted this ECG as follows: ECG completion date: 01/10/25 ECG completion time: 22:10 Prior ECG tracings: not available for review Interpretation: NORMAL SINUS RHYTHM AT 89 BEATS PER MINUTE, NORMAL EKG, NO PREVIOUS EKG AVAILABLE FOR COMPARISON Critical Care Time Critical Care Time Critical Care Time: No Discharge Plan Discharge Clinical Impression: Atypical chest pain Patient Disposition: Home, Self-Care Condition: Stable Instructions: Chest Pain (DC) Additional Instructions: RETURN IF SYMPTOMS ARE WORSENING , CALL YOUR FAMILY PHYSICIAN FOR APPOINTMENT, TAKE TYLENOL NEEDED FOR ACHES AND PAIN, CONTINUE HOME MEDICATIONS. AVOID TRIGGER FOODS, SUCH SPICY, FATTY, OR ACIDIC FOODS EAT SMALLER AND MORE FREQUENT MEALS ELEVATED THE HEAD OF THE BED Patient Language: Bangladeshi Prescriptions: New pantoprazole [Protonix] 40 mg tablet,delayed release (DR/EC) 40 mg PO QAM 30 Days Qty: 30 0RF No Action naproxen 375 mg tablet 375 mg PO BID Qty: 14 0RF ibuprofen 600 mg tablet 600 mg PO TID PRN (Reason: pain) Qty: 20 0RF ondansetron 4 mg tablet,disintegrating 4 mg PO Q8H PRN (Reason: nausea and vomiting) Qty: 7 0RF acetaminophen 500 mg capsule 1,000 mg PO Q6H PRN (Reason: pain) Qty: 20 0RF sulfamethoxazole-trimethoprim [Bactrim DS] 800-160 mg tablet 1 tablet PO Q12H 3 Days Qty: 6 0RF ondansetron 4 mg tablet,disintegrating 4 mg PO Q8H PRN (Reason: nausea and vomiting) Qty: 10 0RF prednisone 20 mg tablet 40 mg PO DAILY 5 Days Qty: 10 0RF Follow-up/Referrals: PHYSICIAN,GLUE SPREADING MACHINE OPERATOR [Primary Care Provider] - Steven Washington MD [Physician] - 01/12/25 Stand Alone Forms: Work/School Release IP
[2025-01-10] MEDS: BELLADONNA ALK/PHENOB ELIX 10 ML, MAG HYDROX/ALUMINUM HYD/SIMETH 30 ML, LIDOCAINE 2% VI... PO (22:22)
[2025-01-10 22:25] VITALS: BP 117/71; PULSE 86; RESP 17; O2SAT 100
== END 2025-01-10 22:25 | disposition home or self-care (01) ==
PROVIDERS: Student in an Organized Health Care Education/Training Program; Emergency Provider Emergency Medicine
DX: R07.89 Other chest pain (principal)
CPT/HCPCS: 36415; 71045; 80053; 83690; 84484; 85025; 85610; 85730; 93005; 99284; A9270

== ENCOUNTER 2025-01-23 14:35 | Emergency (ER) | payer OTHER, SELFPAY ==
--- NOTE | ~2025-01-23 | XR_ITS ---
XR chest 2V Ordering provider: Desirae Moore PA-C History: 19 years Female with . left sided chest/rib pain . Comparison: January 10 2025 FINDINGS: MEDIASTINUM: The cardiac silhouette is not enlarged. LUNGS: No infiltrates, effusions or pneumothorax. OTHER: No free air under the diaphragm. IMPRESSION: No acute cardiopulmonary pathology Reviewed, dictated and finalized at location A.
[2025-01-23 14:40] VITALS: BP 98/82; PULSE 100; RESP 20; O2SAT 100
--- NOTE | 2025-01-23 14:43 | ECG_ITS ---
Test Date: 2025-01-23 14:48:24 Measurements Intervals [place] Rate: 84 P: 61 OR: 153 QRS: 82 QRSD: 73 T: 48 QT: 323 QTc: 382 Interpretive Statements SINUS RHYTHM RSR' IN V1 OR V2, PROBABLY NORMAL VARIANT BASELINE ARTIFACT- I, II, III, AVR, AVL, AVF NORMAL ECG Compared to ECG 01/10/2025 21:17:59 No significant changes Electronically Signed On 01-23-2025 14:54:56 CDT by Barry Childress D.O.
--- NOTE | 2025-01-23 14:50 | ED.BACK ---
HPI - Back Pain/Injury General Chief Complaint: Back Pain/Injury Stated Complaint: Left side flank pain-worse with Movement Related Data Allergies Allergy/AdvReac Type Severity Reaction Status Date / Time No Known Allergies Allergy Verified 01/23/25 14:37 [facility] Past Medical History Medical History History of headache Right hand dominant Ovarian cyst Social History Social History Living arrangements: with roommate(s) Additional living arrangements comments: 3 roommates Occupation/Education: occupation Additional occupation/education comments: [employer] Vital Signs Vital signs: Vital Signs Pulse Rate 100 01/23/25 14:40 Respiratory Rate 01/23/25 14:40 Blood Pressure 98/82 L 01/23/25 14:40 Pulse Oximetry 100 01/23/25 14:40 Pulse Rate 100 01/23/25 14:40 Respiratory Rate 20 01/23/25 14:40 Blood Pressure 98/82 L 01/23/25 14:40 Pulse Oximetry 100 01/23/25 14:40 Discharge Plan Discharge Patient Language: Venezuelan Prescriptions: No Action naproxen 375 mg tablet 375 mg PO BID Qty: 14 0RF ibuprofen 600 mg tablet 600 mg PO TID PRN (Reason: pain) Qty: 20 0RF ondansetron 4 mg tablet,disintegrating 4 mg PO Q8H PRN (Reason: nausea and vomiting) Qty: 7 0RF acetaminophen 500 mg capsule 1,000 mg PO Q6H PRN (Reason: pain) Qty: 20 0RF sulfamethoxazole-trimethoprim [Bactrim DS] 800-160 mg tablet 1 tablet PO Q12H 3 Days Qty: 6 0RF ondansetron 4 mg tablet,disintegrating 4 mg PO Q8H PRN (Reason: nausea and vomiting) Qty: 10 0RF prednisone 20 mg tablet 40 mg PO DAILY 5 Days Qty: 10 0RF pantoprazole [Protonix] 40 mg tablet,delayed release (DR/EC) 40 mg PO QAM 30 Days Qty: 30 0RF Follow-up/Referrals: PHYSICIAN,BROADCAST NEWS PRODUCER [Primary Care Provider] -
--- NOTE | 2025-01-23 14:51 | ED.CHESTPAIN ---
HPI - Chest Pain General Chief Complaint: Back Pain/Injury Stated Complaint: Left side flank pain-worse with Movement Time Seen by Provider: 01/23/25 16:01 Focused HPI: 19-year-old female presents to the emergency department for left sided chest pain that started around 10:00 a.m. this morning. States the pain is sharp in nature and occurs beneath her left breast and wraps around to the lateral and posterior aspect of her chest wall. She states the pain is worse with positions and deep inspiration, pain is improved with certain positions. She has not taken anything for pain. Denies shortness of breath, lower extremity edema, recent surgeries or hospitalizations, hemoptysis, history of VTE, use of control, cough or congestion. Denies possibility of . GENERAL: Well-appearing, well-nourished, and in no acute distress. HEAD: Normocephalic, atraumatic. CHEST: Clear to auscultation. ?No respiratory distress. Tenderness inferior to the left breast, to the left lateral chest wall near the midaxillary line into the posterior lateral chest wall with no overlying skin changes or rashes HEART: Regular rate and rhythm.? NEURO: ?Alert and oriented x3. Patient screened in triage and initial orders placed.? ?Additional care and disposition to be based upon?diagnostic testing and treatment. History of Present Illness HPI narrative: Agree with the above triage note. Related Data Allergies Allergy/AdvReac Type Severity Reaction Status Date / Time No Known Allergies Allergy Verified 01/23/25 14:37 Review of Systems Review of Systems: All systems reviewed & are unremarkable except as noted in HPI and below PMFSH Past Medical History Medical History History of headache Right hand dominant Ovarian cyst Social History Social History Living arrangements: with roommate(s) Additional living arrangements comments: 3 roommates Occupation/Education: occupation Additional occupation/education comments: [employer] Narrative: GENERAL: Well-appearing, well-nourished, and in no acute distress. HEAD: Normocephalic, atraumatic. EYES: EOMI. ENT: Nares clear, no rhinorrhea or epistaxis. Mucous membranes moist. NECK: Supple. CHEST: Clear to auscultation. No respiratory distress. Tenderness to left anterior lateral and posterior lateral chest wall palpation with no overlying skin changes, crepitus or deformity HEART: Regular rate and rhythm. No murmur heard. Normal peripheral pulses. ABDOMEN: Soft, nontender, nondistended, normal active bowel sounds. EXTREMITIES: Normal range of motion. No edema. Negative Homans bilaterally SKIN: Warm, dry, no rash. NEURO: No focal deficits. Alert and oriented x3 Course Vital Signs Vital signs: Vital Signs Pulse Rate 100 01/23/25 14:40 Respiratory Rate 20 01/23/25 14:40 Blood Pressure 98/82 L 01/23/25 14:40 Pulse Oximetry 100 01/23/25 14:40 Pulse Rate 90 01/23/25 16:02 Respiratory Rate 16 01/23/25 16:02 Blood Pressure 115/76 01/23/25 16:02 Pulse Oximetry 100 01/23/25 16:02 MDM - Chest Pain MDM Narrative Medical decision making narrative: 19-year-old female with no significant past medical history presents to the emergency department for left-sided chest wall pain that started at 10:00 a.m. this morning. Patient describes the pain as pleuritic, worse with certain positions. Triage vitals with mildly soft blood pressure 98/82 which has since improved. Exam is significant for reproducible tenderness to the left chest wall with no overlying skin changes, crepitus or deformity. Lung sounds are clear. EKG shows sinus rhythm with a rate of 84 ppm, normal TN interval, normal QRS duration, normal QTC, no ischemic changes. Chest x-ray shows no acute cardiopulmonary findings. Patient updated on results. Presentation consistent with costochondritis. She received IM Toradol with significant improvement in symptoms. Shared decision making regarding obtaining further workup including lab work, troponin and D-dimer. Patient would like to forego further workup given she feels much better after IM Toradol and her presentation is consistent with MSK etiology (reproducible, positional.) Additionally, she is now PERC negative for PE and she has no risk factors for PE. Naproxen sent to pharmacy advised close follow-up with PCP. Discussed strict ED return precautions. She is agreeable to plan verbalized understanding. Discharged in stable condition. Discharge Plan Discharge Clinical Impression: Costochondritis Patient Disposition: Home Condition: Stable Instructions: Antibiotic Form, Costochondritis (DC) Additional Instructions: You were evaluated in the emergency department for left-sided chest wall pain. Your presentation is consistent with costochondritis as discussed. Please take anti-inflammatories as discussed and follow-up closely with her primary care provider. Return to the emergency department if you develop changing or worsening pain, it began coughing up blood, developed shortness of breath, or other concerning symptoms. Patient Language: Cypriot Prescriptions: New naproxen 500 mg tablet 500 mg PO BID PRN (Reason: pain) Qty: 20 0RF No Action naproxen 375 mg tablet 375 mg PO BID Qty: 14 0RF ibuprofen 600 mg tablet 600 mg PO TID PRN (Reason: pain) Qty: 20 0RF ondansetron 4 mg tablet,disintegrating 4 mg PO Q8H PRN (Reason: nausea and vomiting) Qty: 7 0RF acetaminophen 500 mg capsule 1,000 mg PO Q6H PRN (Reason: pain) Qty: 20 0RF sulfamethoxazole-trimethoprim [Bactrim DS] 800-160 mg tablet 1 tablet PO Q12H 3 Days Qty: 6 0RF ondansetron 4 mg tablet,disintegrating 4 mg PO Q8H PRN (Reason: nausea and vomiting) Qty: 10 0RF prednisone 20 mg tablet 40 mg PO DAILY 5 Days Qty: 10 0RF pantoprazole [Protonix] 40 mg tablet,delayed release (DR/EC) 40 mg PO QAM 30 Days Qty: 30 0RF Follow-up/Referrals: PHYSICIAN,ALUMINUM HYDROXIDE PROCESS OPERATOR [Non-Staff] - Warren Anthony MD [Physician] -
--- OUTSIDE RECORDS SUMMARY | 2025-01-23 15:43 | XMS_ITS | Clinical Summary ---
Author Organization [facility] Address [address] [place] [address] Care Team Providers Care Rug Renovator Name Role Phone Unavailable Primary Care Provider Unavailabl e Source Comments [facility],non-owned Affiliates and Associated Physician Practices is amultiple site organization consisting of ambulatory clinics and hospital sitesin [place], [place], [place] and [place]. This disclosure is being madepursuant to the Care Everywhere program and may not contain all information available regarding this patient. Last updated 18.[facility] Allergies No known active allergies Medications * Be aware that medications may not be up to date on this document. Alwaysverify current medications with the patient. ketoconazole (Nizoral) 2 % shampoo Apply to wet hair and face, leave on for 3 minutes, then rinse; three times weekly. 30 days supply 120 mL 3 4 Active hydrocortisone (Hytone) 2.5 % cream Apply to face twice daily. Do not use for more than a month consistently. 30 days supply. 30 g 2 5 Active pimecrolimus (Elidel) 1 % creamIndicatio ns:Atopic Dermatitis Apply to face and ears twice a day. 30 days supply. Reasons: Atopic Dermatitis 30 g 2 5 Active triamcinolone acetonide (Kenalog) 0.025 % creamIndicatio ns:Dermatitis Apply to face twice daily as needed for rash. 30 days supply. Reasons: Skin Inflammation 80 g 1 5 Active pimecrolimus (Elidel) 1 % creamIndicatio ns:Atopic Dermatitis Apply to face and ears twice a day. 30 days supply. Reasons: Atopic Dermatitis 60 g 2 5 025 Discontin ued(Reord er) pimecrolimus (Elidel) 1 % creamIndicatio ns:Atopic Dermatitis Apply to face and ears twice a day. 30 days supply. Reasons: Atopic Dermatitis 60 g 2 5 025 Discontin ued(Reord er) Encounters Date Type Department Care Team Description 01/03/2025 Telephone [facility] - Dermatology [address] [place] [phone] Bonny Carney MD Insurance Issue/question ([employer] INSUR REP ROSITA CALLING TO REQUEST NEW PA FOR; pimecrolimus (Elidel) 1 % cream (Order [id number]) DUE TO DENIAL FOR QUANITY . PLS RESUBMIT PA W/ QUANITY OF 30 GRAMS TUBE PER MONTH. 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 Gender Identity Not on file Sexual Orientation Not on file Plan of Treatment Upcoming Encounters Date Type Department Care Team (Late st Contact Info) Description 01/25/2025 2:50 PM CDT Office Visit [facility] - Dermatology [address] [place] [phone] Bonny Carney MD [address] [place] [address] [address] [place] [phone] Health Maintenance Due Date Last Done Comments HIV SCREENING 01/01/2020 HPV VACCINE (1 - 3-dose series) 01/01/2020 CHLAMYDIA/GONORRHEA SCREENING 2020 MENINGOCOCCAL (Group B) VACC INE SHARED DECISION-MAKING (1 of 2 - Standard) 2020 HEPATITIS C SCREENING 12/27/2022 DTAP/TDAP/TD VACCINES (1 - Tdap) 01/01/2024 HEPATITIS B VACCINE (1 of 3 - 19+ 3-dose series) 01/01/2024 COVID-19 VACCINE (1 - 2023-2 5 season) 2024 DEPRESSION SCREENING 10/11/2024 INFLUENZA VACCINE (Season Ended) 2025 ZOSTER VACCINE (1 of 2) 2054 HIB VACCINE Aged Out No longer eligi ble based on patient's age to complete this topic MENINGOCOCCAL GROUPS A/C/Y/W VACCINE Aged Out No longer eligible b ased on patient's age to complete this topic PNEUMOCOCCAL VACCINE Aged Out No long er eligible based on patient's age to complete this topic Insurance [employer]
[2025-01-23 16:02] VITALS: BP 115/76; PULSE 90; RESP 16; O2SAT 100
[2025-01-23] MEDS: KETOROLAC 30 MG/ML VIAL (*BKC) IM (16:03)
--- OUTSIDE RECORDS SUMMARY | 2025-01-23 16:05 | XMS_ITS | Clinical Summary ---
Author Organization [facility] Address [address] [place] [address] Care Team Providers Care Brands Editor Name Role Phone Unavailable Primary Care Provider Unavailabl e Source Comments [facility],non-owned Affiliates and Associated Physician Practices is amultiple site organization consisting of ambulatory clinics and hospital sitesin [place], [place], [place] and [place]. This disclosure is being madepursuant to the Care Everywhere program and may not contain all information available regarding this patient. Last updated 18.[facility] Allergies No known active allergies Medications * [...] 01/03/2025 Telephone [facility] Dermatology [address] [place] [phone] Bonny Carney MD Insurance Issue/question ([employer] INS[employer] REP ROSITA CALLING TO REQUEST NEW PA FOR; pimecrolimus (Elidel) 1 % cream (Order [id number]) DUE TO DENIAL FOR QUANITY . PLS RESUBMIT PA W/ QUANITY OF 30 GRAMS TUBE PER MONTH. 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
[2025-01-23 17:29] VITALS: TEMP 36.9
== END 2025-01-23 17:36 | disposition home or self-care (01) ==
PROVIDERS: Emergency Provider Physician Assistant
DX: M94.0 Chondrocostal junction syndrome [Tietze] (principal)
CPT/HCPCS: 71046; 93005; 96372; 99283; J1885

== ENCOUNTER 2025-01-26 18:08 | Emergency (ER) | payer OTHER, SELFPAY ==
--- NOTE | ~2025-01-26 | XR_ITS ---
XR chest 2V Ordering provider: Dionisio Coates MD History: 19 years Female with . chest pain . Comparison: January 23, 2025 FINDINGS: MEDIASTINUM: The cardiac silhouette is not enlarged. LUNGS: No infiltrates, effusions or pneumothorax. OTHER: No free air under the diaphragm. IMPRESSION: No acute cardiopulmonary pathology. Reviewed, dictated and finalized at location A.
--- OUTSIDE RECORDS SUMMARY | 2025-01-26 18:10 | XMS_ITS | Clinical Summary ---
Author Organization [facility] Address [address] [place] [address] Care Team Providers Care Air Brush Artist Name Role Phone Unavailable Primary Care Provider Unavailabl e Source Comments [facility],non-owned Affiliates and Associated Physician Practices is amultiple site organization consisting of ambulatory clinics and hospital sitesin [place], [place], [place] and [place]. This disclosure is being madepursuant to the Care Everywhere program and may not contain all information available regarding this patient. Last updated 18.[facility] Allergies No known active allergies Medications * [...] 01/03/2025 Telephone [facility] [address] [place] [phone] Bonny Carney MD Insurance Issue/question ([employer] INS[employer] REP ROSITA CALLING TO REQUEST NEW PA FOR; pimecrolimus (Elidel) 1 % cream (Order [id number]) DUE TO DENIAL FOR QUANITY . PLS RESUBMIT PA W/ QUANITY OF 30 GRAMS TUBE PER MONTH. 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
--- NOTE | 2025-01-26 18:14 | ECG_ITS ---
Test Date: 2025-01-26 18:22:23 Measurements Intervals Badin Rate: 99 P: 76 SD: 146 QRS: 68 QRSD: 76 T: 45 QT: 310 QTc: 399 Interpretive Statements SINUS RHYTHM BORDERLINE T WAVE ABNORMALITY- ANTERIOR LEADS BASELINE ARTIFACT- I, II, AVR, AVL BORDERLINE ECG Compared to ECG 01/23/2025 14:48:24 No significant changes Electronically Signed On 01-26-2025 20:34:20 CDT by Barry Childress D.O.
[2025-01-26 18:22] VITALS: BP 117/81; PULSE 105; RESP 16; TEMP 36.4; O2SAT 100
[2025-01-26 19:03] LABS: Alanine Aminotransferase 12 U/L (6-35); Albumin Level 4.5 g/dL (3.5-5.1); Alkaline Phosphatase 43 U/L (38-126); Anion Gap 7 mmol/L (4-12); Aspartate Amino Transferase 26 U/L (14-36); Basophils Percent Auto 0.5 % (0.2-1.2); Bilirubin,Total 0.2 mg/dL (0.2-1.3); Blood Urea Nitrogen 9 mg/dL (7-17); Carbon Dioxide 26 mmol/L (22-30); Chloride 105 mmol/L (98-107); Eosinophils Absolute Auto 0.2 K/mm3 (0-0.3); Eosinophils Percent Auto 2.3 % (0-4.4); Estimated Glomerular Filt Rate > 60; Glucose 80 mg/dL (65-110); Hematocrit 38.9 % (37.0-47.0); Hemoglobin 12.8 g/dL (12.0-15.0); Immature Granulocyte Absolute 0.04 K/mm3 (0.00-0.031); Immature Granulocyte Percent A 0.5 % (0-0.5); Lipase 62 U/L (23-300); Lymphocytes Absolute Auto 2.11 K/mm3 (0.9-3.2); Lymphocytes Percent Auto 25.7 % (18.3-44.2); Mean Corpuscular HGB Conc 32.9 g/dl (32-36); Mean Corpuscular Hemoglobin 31.4 pg (26-34); Mean Corpuscular Volume 95.3 fl (80-100); Mean Platelet Volume 9.5 fl (7.4-10.4); Monocytes Absolute Auto 0.7 K/mm3 (0.1-0.6); Neutrophils Absolute Auto 5.1 K/mm3 (1.3-6.7); Platelet Count Result 324 k/mm3 (150-375); Potassium 4.2 mmol/L (3.4-5.0); Red Blood Count 4.08 M/mm3 (4.2-5.4); Red Cell Distribution Width 11.8 % (11.5-14.5); Sodium 138 mmol/L (137-145); White Blood Count 8.2 K/mm3 (4.5-10.0)
[2025-01-26 19:11] LABS: Partial Thromboplastin Time 27.4 Seconds (22.3-36.8); Prothrombin Time 13.9 Seconds (11.1-14.7)
[2025-01-26 19:15] LABS: Troponin I < 0.012 ng/mL (0.000-0.034)
--- NOTE | 2025-01-26 20:25 | ED_ITS ---
HPI - Chest Pain General Chief Complaint: Chest Pain Stated Complaint: rib pain Time Seen by Provider: 01/26/25 20:24 History of Present Illness HPI narrative: Patient is a 19-year-old female who presents the emergency department this evening complaining of a chest pain since Wednesday of this week. Patient states that she presented to the emergency department and had a chest x-ray performed but did not have any blood work or EKG done. Patient is returning now to have further workup of her chest pain. Denies any shortness of breath, any recent illness, fevers or chills. Denies any recent falls or trauma. Patient admits that the pain is positional and reproducible with palpation. No additional symptoms or concerns at this time. Related Data Allergies Allergy/AdvReac Type Severity Reaction Status Date / Time No Known Allergies Allergy Verified 01/23/25 14:37 Review of Systems 2 Review of Systems: All systems are reviewed and are negative unless stated otherwise in the HPI. [facility] Past Medical History Medical History History of headache Right hand dominant Ovarian cyst Social History Social History Living arrangements: with roommate(s) Additional living arrangements comments: 3 roommates Occupation/Education: occupation Additional occupation/education comments: [employer] 2 Narrative: General: Alert, awake, afebrile, in no acute distress. HEENT: PERRL, no rhinorrhea, no post nasal drip, oropharynx clear. Neck: Trachea midline, no JVD, no lymphadenopathy. Cardiovascular: Regular rate and rhythm, no murmurs, rubs or gallops, no peripheral edema. Respiratory: Clear to auscultation bilaterally, no tachypnea, no wheezing, no rhonchi, no rubs, no respiratory distress. Abdomen: Soft, nontender, nondistended, no rebound, no guarding, no peritoneal signs. Musculoskeletal: No joint swelling or deformity, normal muscle tone, r eproducible left-sided chest wall pain. Skin: No rashes or petechia, no signs of infection. Psychiatric: Alert and oriented, normal behavior and judgment for situation. Neurological: Alert and oriented to person, place, and time. Follows all commands. No focal deficits, speech is clear and fluent. Course Vital Signs Vital signs: Vital Signs Temperature 97.6 F 01/26/25 18:22 Pulse Rate 105 H 01/26/25 18:22 Respiratory Rate 16 01/26/25 18:22 Blood Pressure 117/81 01/26/25 18:22 Pulse Oximetry 100 01/26/25 18:22 Temperature 97.6 F 01/26/25 18:22 Pulse Rate 105 H 01/26/25 18:22 Respiratory Rate 16 01/26/25 18:22 Blood Pressure 117/81 01/26/25 18:22 Pulse Oximetry 100 01/26/25 18:22 MDM - Chest Pain MDM Narrative Medical decision making narrative: The patient was evaluated by myself in the emergency department. History is obtained from patient who is an independent historian and physical exam was performed. External medical records were reviewed at this time. IV was established and pertinent tests were ordered. Patient was administered 15 mg of IM Toradol. EKG was obtained which revealed sinus rhythm rate of 99 beats per minute, no evidence of acute ischemia. EKG was independently interpreted by me and is currently pending official cardiology read. Laboratory results obtained revealing no acute process. Imaging studies obtained included CXR which was independently interpreted by me revealing no acute cardiopulmonary process, which is pending final radiology interpretation. Differential diagnosis considerations include costochondritis, rib contusion, acute viral syndrome, infectious process such as pneumonia, coronary artery disease although unlikely given patient's low heart score of 0. Comorbidities impacting this visit include none. I have evaluated and discussed social determinants of health with the patient that could potentially impact subsequent diagnosis and treatment plans. On repeat assessment of the patient, reevaluation revealed that the patient is doing well and is in no acute distress. Patient symptoms have improved since she arrived to our emergency department. Repeat vital signs were all reviewed and noted to be stable. Differential diagnosis and treatment plan were discussed with the patient at bedside. Patient agrees with discussion and after shared medical decision making agrees with discharge. All questions were answered to the patient's satisfaction. Patient will follow up with her PCP in 3-5 days. Patient was provided with strict return precautions and instructed to return to the emergency department if any new or worsening symptoms develop. The patient was discharged in stable condition. Lab Data 01/26/25 18:42 01/26/25 18:42 Labs: Lab Results 04/18/25 Range/Units 18:42 WBC 8.2 (4.5-10.0) K/mm3 RBC 4.08 L (4.2-5.4) M/mm3 Hgb 12.8 (12.0-15.0) g/dL Hct 38.9 (37.0-47.0) % MCV 95.3 (80-100) fl MCH 31.4 (26-34) pg MCHC 32.9 (32-36) g/dl RDW 11.8 (11.5-14.5) % Plt Count 324 (150-375) k/mm3 MPV 9.5 (7.4-10.4) fl Immature Gran % (Auto) 0.5 (0-0.5) % Neut % (Auto) 62.0 (45.5-73.1) % Lymph % (Auto) 25.7 (18.3-44.2) % Craig % (Auto) 9.0 H (2.6-8.5) % Eos % (Auto) 2.3 (0-4.4) % Baso % (Auto) 0.5 (0.2-1.2) % Lymph # (Auto) 2.11 (0.9-3.2) K/mm3 Craig # (Auto) 0.7 H (0.1-0.6) K/mm3 Eos # (Auto) 0.2 (0-0.3) K/mm3 Baso # (Auto) 0.0 (0.0-0.1) K/mm3 Abs Immat Gran (auto) 0.04 H (0.00-0.031) K/mm3 Absolute Neuts (auto) 5.1 (1.3-6.7) K/mm3 Absolute Nucleated RBC 0.000 (0.0-0.012) K/mm3 Nucleated RBC % 0.0 (0.0-0.2) % PT 13.9 (11.1-14.7) Seconds INR 1.0 APTT 27.4 (22.3-36.8) Seconds Sodium 138 (137-145) mmol/L Potassium 4.2 (3.4-5.0) mmol/L Chloride 105 (98-107) mmol/L Carbon Dioxide 26 (22-30) mmol/L Anion Gap 7 (4-12) mmol/L BUN 9 (7-17) mg/dL Creatinine 0.87 (0.7-1.0) mg/dL Estim Creat Clear Calc Not Reportable Estimated GFR > 60 (59 - ) Glucose 80 (65-110) mg/dL Calcium 9.0 (8.4-10.2) mg/dL Total Bilirubin 0.2 (0.2-1.3) mg/dL AST 26 (14-36) U/L ALT 12 (6-35) U/L Alkaline Phosphatase 43 (38-126) U/L Troponin I < 0.012 (0.000-0.034) ng/mL Total Protein 8.0 (6.3-8.2) g/dL Albumin 4.5 (3.5-5.1) g/dL Lipase 62 (23-300) U/L Discharge Plan Discharge Clinical Impression: Atypical chest pain Patient Disposition: Home Condition: Improved Instructions: Antibiotic Form, Chest Pain (ED) Additional Instructions: Please follow-up with your family doctor within the next 3-5 days. Return to the emergency department if any new or worsening symptoms develop. Patient Language: Kinyarwanda Prescriptions: No Action naproxen 375 mg tablet 375 mg PO BID Qty: 14 0RF naproxen 500 mg tablet 500 mg PO BID PRN (Reason: pain) Qty: 20 0RF ibuprofen 600 mg tablet 600 mg PO TID PRN (Reason: pain) Qty: 20 0RF ondansetron 4 mg tablet,disintegrating 4 mg PO Q8H PRN (Reason: nausea and vomiting) Qty: 7 0RF acetaminophen 500 mg capsule 1,000 mg PO Q6H PRN (Reason: pain) Qty: 20 0RF sulfamethoxazole-trimethoprim [Bactrim DS] 800-160 mg tablet 1 tablet PO Q12H 3 Days Qty: 6 0RF ondansetron 4 mg tablet,disintegrating 4 mg PO Q8H PRN (Reason: nausea and vomiting) Qty: 10 0RF prednisone 20 mg tablet 40 mg PO DAILY 5 Days Qty: 10 0RF pantoprazole [Protonix] 40 mg tablet,delayed release (DR/EC) 40 mg PO QAM 30 Days Qty: 30 0RF Follow-up/Referrals: Barry Childress DO [Physician] - 3 Days UNKNOWN,DOCTOR [Primary Care Provider] - 3 Days Time of Disposition: 20:25
[2025-01-26 20:35] VITALS: BP 128/73; PULSE 87; RESP 14; TEMP 36.7; O2SAT 100
--- OUTSIDE RECORDS SUMMARY | 2025-01-26 20:37 | XMS_ITS | Clinical Summary ---
Author Organization [facility] Address [address] [place] [address] Care Team Providers Care Ice Cream Vault Worker Name Role Phone Unavailable Primary Care Provider Unavailabl e Source Comments [facility] [employer],non-owned Affiliates and Associated Physician Practices is amultiple site organization consisting of ambulatory clinics and hospital sitesin [place], [place], [place] and [place]. This disclosure is being madepursuant to the Care Everywhere program and may not contain all information available regarding this patient. Last updated 18.[facility] [employer] Allergies No known active allergies Medications * [...] 01/03/2025 Telephone [facility] [address] [place] [phone] Bonny Carney MD Insurance Issue/question ([employer] REP ROSITA CALLING TO REQUEST NEW PA FOR; pimecrolimus (Elidel) 1 % cream (Order [id number]) DUE TO DENIAL FOR QUANITY . PLS RESUBMIT PA W/ QUANITY OF 30 GRAMS TUBE PER MONTH. 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
[2025-01-26] MEDS: KETOROLAC 15 MG/ML VIAL (*BKC) IM (20:41)
[2025-01-26 21:12] VITALS: BP 129/76; PULSE 89; RESP 17; O2SAT 99
== END 2025-01-26 21:13 | disposition home or self-care (01) ==
LOC: ANHED 20:35
PROVIDERS: Emergency Medicine; Emergency Provider Emergency Medicine
DX: R07.89 Other chest pain (principal); R94.31 Abnormal electrocardiogram [ECG] [EKG]
CPT/HCPCS: 36415; 71046; 80053; 83690; 84484; 85025; 85610; 85730; 93005; 96372; 99284; J1885

== ENCOUNTER 2025-02-11 05:14 | Emergency (ER) | payer OTHER, SELFPAY ==
--- NOTE | ~2025-02-11 | CT_ITS ---
CTA chest PE protocol Ordering provider: Campbell Quijano MD History: 19 years Female with . Right-sided posterior chest pain evaluate for PE . Comparison: None. Technique: CT angiogram chest was performed following timed intravenous injection of contrast. Thin s lice axial images and reformatted coronal images were obtained. Three dimensional reformatted images of the chest were also obtained using a [employer] workstation. . Automated exposure control and iterati ve reconstruction technique were employed. The dose-length product was 161.95 mGy-cm. 100 mL Omnipaqu e 350 was given IV. Findings: PULMONARY ARTERIES: No pulmonary embolus. VISUALIZED THORACIC INLET: Normal. MEDIASTINUM: Aorta/coronary arteries: The thoracic aorta is normal. Heart/other: The heart is not enlarged. Lymph nodes: No mediastinal or hilar adenopathy. LUNGS: No pulmonary nodules or masses. No infiltrates or effusions. No pneumothorax. VISUALIZED UPPER ABDOMEN: the visualized upper abdomen is normal. MUSCULOSKELETAL: Soft tissues: The superficial soft tissues are normal. Bones: Normal spine. IMPRESSION: 1. No pulmonary embolism. 2. No acute cardiopulmonary pathology. Reviewed, dictated and finalized at location A.
[2025-02-11 05:14] VITALS: BP 133/89; PULSE 94; RESP 14; TEMP 36.6; O2SAT 98
--- NOTE | 2025-02-11 05:22 | ECG_ITS ---
Test Date: 2025-02-11 05:36:38 Measurements Intervals [place] Rate: 75 P: 52 MO: 152 QRS: 68 QRSD: 77 T: 59 QT: 346 QTc: 388 Interpretive Statements SINUS RHYTHM WITH SINUS ARRHYTHMIA Compared to ECG 01/26/2025 18:22:23 No significant changes Electronically Signed On 02-11-2025 16:04:56 CDT by Alexander Pandey
--- OUTSIDE RECORDS SUMMARY | 2025-02-11 05:26 | XMS_ITS | Clinical Summary ---
Author Organization [facility] Address [address] [place] [address] Care Team Providers Care Maintenance Data Analyst Name Role Phone Unavailable Primary Care Provider Unavailabl e Source Comments [facility] [employer],non-owned Affiliates and Associated Physician Practices is amultiple site organization consisting of ambulatory clinics and hospital sitesin [place], [place], [place]. This disclosure is being madepursuant to the Care Everywhere program and may not contain all information available regarding this patient. Last updated 18.[facility] [employer] Allergies No known active allergies Medications * [...] 2 5 Active pimecrolimus (Elidel) 1 % creamIndication s:Atopic Dermatitis Apply to face and ears twice a day. 30 days supply. Reasons: Atopic Dermatitis 30 g 2 5 Active triamcinolone acetonide (Kenalog) 0.025 % creamIndication s:Dermatitis Apply to face twice daily as needed for rash. 30 days supply. Reasons: Skin Inflammation 80 g 1 5 Active Encounters Date Type Department Care Team Description 01/03/2025 Telephone [facility] [address] [place] [phone] Bonny Carney MD Insurance Issue/question ([employer] REP ROSITA CALLING TO REQUEST NEW PA FOR; pimecrolimus (Elidel) 1 % cream (Order [id number]) DUE TO DENIAL FOR QUANITY . PLS RESUBMIT PA W/ QUANITY OF 30 GRAMS TUBE PER MONTH. 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
--- NOTE | 2025-02-11 05:30 | ED.GENADULT ---
HPI - General Adult General Chief complaint: Back Pain/Injury Stated complaint: back pain Time Seen by Provider: 02/11/25 05:18 History of Present Illness HPI narrative: Patient 19-year-old female presents emergency department chief complaint right-sided chest patient reports that he has been seen in the emergency department several times now diagnosis with costochondritis previously patient reports that symptoms are not improved by the fever they worsen body patient reports she has not been able follow-up her primary care provider reports no fever reports the pain has not improved Related Data Allergies Allergy/AdvReac Type Severity Reaction Status Date / Time No Known Allergies Allergy Verified 01/23/25 14:37 Review of Systems Review of Systems: A 10 system review of systems was completed on the patient and is negative except for what is stated in the HPI. Nursing and ancillary documentation was reviewed. [facility] Past Medical History Medical History History of headache Right hand dominant Ovarian cyst Social History Social History Living arrangements: with roommate(s) Additional living arrangements comments: 3 roommates Occupation/Education: occupation Additional occupation/education comments: [employer] Narrative: GENERAL: Well-appearing, well-nourished, and in no acute distress. HEAD: Normocephalic, atraumatic. EYES: PERRLA and EOMI. ENT: Nares clear, no rhinorrhea or epistaxis. Mucous membranes moist. NECK: Supple. CHEST: Clear to auscultation. No respiratory distress. Tenderness to palpation the thoracic spine and lateral to the scapula on the right HEART: Regular rate and rhythm. No murmur heard. Normal peripheral pulses. ABDOMEN: Soft, nontender, nondistended, normal active bowel sounds. EXTREMITIES: Normal range of motion. No edema. SKIN: Warm, dry, no rash. NEURO: No focal deficits. Alert and oriented x3. PSYCH: Normal mood and affect. Course Vital Signs Vital signs: Vital Signs Temperature 36.6 C 02/11/25 05:14 Pulse Rate 94 02/11/25 05:14 Respiratory Rate 14 02/11/25 05:14 Blood Pressure 133/89 02/11/25 05:14 Pulse Oximetry 98 02/11/25 05:14 Oxygen Delivery Room Air 02/11/25 05:14 Temperature 36.6 C 02/11/25 05:14 Pulse Rate 86 02/11/25 05:55 Respiratory Rate 14 02/11/25 05:55 Blood Pressure 115/83 02/11/25 05:55 Pulse Oximetry 100 02/11/25 05:55 Oxygen Delivery Room Air 02/11/25 05:14 Medical Decision Making MDM Narrative Medical decision making narrative: CTA chest showed no evidence of PE Initial troponin was negative EKG showed no acute findings The patient be discharged home on a course of prednisone and a Lidoderm patch and a muscle relaxer Vital Signs Vital Signs: Vital Signs Temperature 36.6 C 02/11/25 05:14 Pulse Rate 94 02/11/25 05:14 Respiratory Rate 14 02/11/25 05:14 Blood Pressure 133/89 02/11/25 05:14 Pulse Oximetry 98 02/11/25 05:14 Oxygen Delivery Room Air 02/11/25 05:14 Temperature 36.6 C 02/11/25 05:14 Pulse Rate 86 02/11/25 05:55 Respiratory Rate 14 02/11/25 05:55 Blood Pressure 115/83 02/11/25 05:55 Pulse Oximetry 100 02/11/25 05:55 Oxygen Delivery Room Air 02/11/25 05:14 Lab Data 02/11/25 05:29 02/11/25 05:29 Labs: Lab Results 02/11/25 Range/Units 05:29 WBC 9.7 (4.5-10.0) K/mm3 RBC 3.93 L (4.2-5.4) M/mm3 Hgb 12.2 (12.0-15.0) g/dL Hct 37.1 (37.0-47.0) % MCV 94.4 (80-100) fl MCH 31.0 (26-34) pg MCHC 32.9 (32-36) g/dl RDW 11.5 (11.5-14.5) % Plt Count 317 (150-375) k/mm3 MPV 9.4 (7.4-10.4) fl Immature Gran % (Auto) 0.3 (0-0.5) % Neut % (Auto) 51.3 (45.5-73.1) % Lymph % (Auto) 36.5 (18.3-44.2) % [place] % (Auto) 8.5 (2.6-8.5) % Eos % (Auto) 3.0 (0-4.4) % Baso % (Auto) 0.4 (0.2-1.2) % Lymph # (Auto) 3.52 H (0.9-3.2) K/mm3 [place] # (Auto) 0.8 H (0.1-0.6) K/mm3 Eos # (Auto) 0.3 (0-0.3) K/mm3 Baso # (Auto) 0.0 (0.0-0.1) K/mm3 Abs Immat Gran (auto) 0.03 (0.00-0.031) K/mm3 Absolute Neuts (auto) 5.0 (1.3-6.7) K/mm3 Absolute Nucleated RBC 0.000 (0.0-0.012) K/mm3 Nucleated RBC % 0.0 (0.0-0.2) % PT 14.2 (11.1-14.7) Seconds INR 1.1 APTT 26.3 (22.3-36.8) Seconds Sodium 140 (137-145) mmol/L Potassium 3.8 (3.4-5.0) mmol/L Chloride 107 (98-107) mmol/L Carbon Dioxide 25 (22-30) mmol/L Anion Gap 8 (4-12) mmol/L BUN 7 (7-17) mg/dL Creatinine 0.70 (0.7-1.0) mg/dL Estim Creat Clear Calc 87 ml/min Estimated GFR > 60 (59 - ) Glucose 83 (65-110) mg/dL Calcium 9.3 (8.4-10.2) mg/dL Total Bilirubin 0.2 (0.2-1.3) mg/dL AST 23 (14-36) U/L ALT 11 (6-35) U/L Alkaline Phosphatase 47 (38-126) U/L Troponin I < 0.012 (0.000-0.034) ng/mL Total Protein 7.0 (6.3-8.2) g/dL Albumin 4.3 (3.5-5.1) g/dL Lipase 70 (23-300) U/L Discharge Plan Discharge Clinical Impression: Back pain Patient Disposition: Home Condition: Stable Instructions: Antibiotic Form, Back Pain (ED) Patient Language: [place] Prescriptions: New cyclobenzaprine 10 mg tablet 10 mg PO TID PRN (Reason: muscle spasm) Qty: 21 0RF prednisone 20 mg tablet 40 mg PO DAILY 5 Days Qty: 10 0RF lidocaine [Lidoderm] 5 % adhesive patch,medicated 1 patch topical DAILY Qty: 15 0RF Rx Instructions: leave on most painful area for up to 12 hrs No Action naproxen 375 mg tablet 375 mg PO BID Qty: 14 0RF naproxen 500 mg tablet 500 mg PO BID PRN (Reason: pain) Qty: 20 0RF ibuprofen 600 mg tablet 600 mg PO TID PRN (Reason: pain) Qty: 20 0RF ondansetron 4 mg tablet,disintegrating 4 mg PO Q8H PRN (Reason: nausea and vomiting) Qty: 7 0RF acetaminophen 500 mg capsule 1,000 mg PO Q6H PRN (Reason: pain) Qty: 20 0RF sulfamethoxazole-trimethoprim [Bactrim DS] 800-160 mg tablet 1 tablet PO Q12H 3 Days Qty: 6 0RF ondansetron 4 mg tablet,disintegrating 4 mg PO Q8H PRN (Reason: nausea and vomiting) Qty: 10 0RF prednisone 20 mg tablet 40 mg PO DAILY 5 Days Qty: 10 0RF pantoprazole [Protonix] 40 mg tablet,delayed release (DR/EC) 40 mg PO QAM 30 Days Qty: 30 0RF Follow-up/Referrals: Warren Anthony MD [Physician] - UNKNOWN,DOCTOR [Primary Care Provider] - Time of Disposition: 07:01
[2025-02-11] MEDS: KETOROLAC 15 MG/ML VIAL (*BKC) IV PUSH (05:31)
[2025-02-11 05:36] LABS: Basophils Percent Auto 0.4 % (0.2-1.2); Eosinophils Absolute Auto 0.3 K/mm3 (0-0.3); Hematocrit 37.1 % (37.0-47.0); Hemoglobin 12.2 g/dL (12.0-15.0); Immature Granulocyte Absolute 0.03 K/mm3 (0.00-0.031); Immature Granulocyte Percent A 0.3 % (0-0.5); Lymphocytes Absolute Auto 3.52 K/mm3 (0.9-3.2); Lymphocytes Percent Auto 36.5 % (18.3-44.2); Mean Corpuscular HGB Conc 32.9 g/dl (32-36); Mean Corpuscular Volume 94.4 fl (80-100); Mean Platelet Volume 9.4 fl (7.4-10.4); Monocytes Absolute Auto 0.8 K/mm3 (0.1-0.6); Monocytes Percent Auto 8.5 % (2.6-8.5); Neutrophils Percent Auto 51.3 % (45.5-73.1); Platelet Count Result 317 k/mm3 (150-375); Red Blood Count 3.93 M/mm3 (4.2-5.4); Red Cell Distribution Width 11.5 % (11.5-14.5); White Blood Count 9.7 K/mm3 (4.5-10.0)
[2025-02-11 05:43] LABS: Alanine Aminotransferase 11 U/L (6-35); Albumin Level 4.3 g/dL (3.5-5.1); Alkaline Phosphatase 47 U/L (38-126); Anion Gap 8 mmol/L (4-12); Aspartate Amino Transferase 23 U/L (14-36); Bilirubin,Total 0.2 mg/dL (0.2-1.3); Blood Urea Nitrogen 7 mg/dL (7-17); Calcium 9.3 mg/dL (8.4-10.2); Carbon Dioxide 25 mmol/L (22-30); Chloride 107 mmol/L (98-107); Estimated CRCL calculation 87 ml/min; Estimated Glomerular Filt Rate > 60; Glucose 83 mg/dL (65-110); Lipase 70 U/L (23-300); Potassium 3.8 mmol/L (3.4-5.0); Sodium 140 mmol/L (137-145)
[2025-02-11 05:46] LABS: INR 1.1; Prothrombin Time 14.2 Seconds (11.1-14.7)
[2025-02-11 05:47] LABS: Partial Thromboplastin Time 26.3 Seconds (22.3-36.8)
[2025-02-11 05:55] VITALS: BP 115/83; PULSE 86; RESP 14; O2SAT 100
[2025-02-11 05:55] LABS: Troponin I < 0.012 ng/mL (0.000-0.034)
[2025-02-12 11:56] LABS: BEDSIDEPREGUCG Negative (Negative)
== END 2025-02-11 07:25 | disposition home or self-care (01) ==
PROVIDERS: Emergency Provider Emergency Medicine
DX: M54.9 Dorsalgia, unspecified (principal)
CPT/HCPCS: 36415; 71275; 80053; 81025; 83690; 84484; 85025; 85610; 85730; 93005; 96374; 99284; J1885; Q9967